=== PATIENT | male | born 2000 | race Hispanic/Latino ===

== ENCOUNTER 2020-07-26 02:02 | Emergency (ER) | payer SELFPAY ==
[2020-07-26] MEDS ORDERED: KETOROLAC TROMETHAMINE 30MG/ML ONE (02:37)
[2020-07-26] MEDS ORDERED: ORPHENADRINE CITRATE 30 MG/ML ML ONE (02:37)
== END 2020-07-26 03:26 | disposition home or self-care (01) ==
LOC: EDH 02:02
DX: S16.1XXA Strain of muscle, fascia and tendon at neck level, initial encounter (principal); S40.812A Abrasion of left upper arm, initial encounter; S50.811A Abrasion of right forearm, initial encounter; M54.6 Pain in thoracic spine; V49.09XA Driver injured in collision with other motor vehicles in nontraffic accident, initial encounter; Y93.89 Activity, other specified; Y92.89 Other specified places as the place of occurrence of the external cause
CPT/HCPCS: 72040; 96374; 96375; 99284; J1885; J2360